=== PATIENT | male | born 1960 | race Caucasian/White ===

== ENCOUNTER 2025-07-22 09:52 | Inpatient (IN) ==
[2025-07-22] MEDS: DUONEB NEB ONE (10:22)
[2025-07-22 10:31] LABS: IMMATURE GRANULOCYTE # (AUTO) 0.0 (0.0-1.0); IMMATURE GRANULOCYTE % (AUTO) 0.3 % (0.0-5.0); RDW COEFFICIENT OF VARIATION 13.4 % (11.6-14.8)
[2025-07-22] MEDS: SODIUM CHLORIDE 1,000 ML IV ONE (10:39)
[2025-07-22 10:42] LABS: CREATININE 1.30 mg/dL (0.60-1.10)
[2025-07-22] MEDS: ZOFRAN SDV IVP ONE (10:48)
[2025-07-22] MEDS: ATIVAN IVP ONE (10:48)
--- NOTE | 2025-07-22 11:02 | DI ---
EXAMINATION: AP CHEST RADIOGRAPH. HISTORY: chest pain COMPARISON: 03/17/2025 chest x-ray FINDINGS: There is new elevation of the right hemidiaphragm. Multifocal right lung patchy opacities are seen. There is a subtle more focal right infrahilar opacity. No pleural effusion or pneumothorax. The cardiomediastinal silhouette is within normal limits. Operative changes mediasternotomy are again seen. IMPRESSION: Subtle right infrahilar focal opacity. This is nonspecific and a neoplastic etiology cannot be excluded in this exam. Recommend CT with IV contrast for further evaluation. New right hemidiaphragm elevation. Multifocal right lung atelectasis, consolidation and/or scarring.
--- NOTE | 2025-07-22 11:13 | ED.PDOC ---
General [facility] ED Provider: Dr. BRAULIO SIMONS MD Chief Complaint: Shortness of Air Stated Complaint: Patient is a 65-year-old male who is presenting to the emergency department for multiple complaints. Patient states that starting 5 days ago he has been having frequent nonbloody, nonbilious emesis with associated epigastric abdominal pain. He also endorses chest pain and shortness of breath for 4 days. He describes it as a dull retrosternal pain. He is unsure if there is any worsening of breath when lying flat. Denies any fevers, chills, or productive cough. Denies any diarrhea. He had a normal bowel movement earlier today without any hematochezia or melena. Also has been passing flatus without any issues. States the abdominal pain is extremely mild and he has not had to take any medication for it. He also notes that he feels "numb all over "for multiple days. Denies any focal numbness or weakness however. Patient states he has been noncompliant with his medications as he has not seen his primary care physician recently as he is concerned he will not see him as he owes them money. Patient is concerned that shortness of breath might be related to his history of atrial fibrillation. Time Seen by Provider: 07/22/25 10:03 Mode of Arrival: Walk-In Information Source: Patient Exam Limitations: No limitations Primary Care Provider: ANGELICA SANCHEZ MD Nursing and Triage Documentation Reviewed and Agree: Yes Opioid Naive vs. Tolerant What is Opioid Naive?: *Opioid Naive implies the patient is not already taking opioids or not chronically receiving opioids on a daily basis. *PRN dosing is not "usually" associated with tolerance. *Patients are at higher risk of over-sedation and aspiration. What is Opioid Tolerant?: *Opioid Tolerance implies less than the expected response to an opioid. *Acquired tolerance is defined by the patient taking 60mg of oral morphine daily (or equianalgesic dose of another opioid) for 1 week or more. *Often associated with chronic pain. *May take more than usual dose to achieve desired pain control. Review of Systems Review Of Systems Constitutional: Denies Chills, Diaphoresis, Fever or Weakness Respiratory: Reports Shortness of Breath; Denies Cough, Orthopnea or Wheezing Cardiac: Reports Chest pain; Denies Lightheadedness, Palpitations or Syncope GI: Reports Abdominal pain, Nausea, Poor fluid intake and Vomiting; Denies Abdomen distended, Constipated or Diarrhea : Reports No symptoms Musculoskeletal: Reports No symptoms Skin: Reports No symptoms PFSH PFSH Medical History Heart attack I21.9 - Acute myocardial infarction, unspecified (ICD-10) CVA (cerebral vascular accident) I63.9 - Cerebral infarction, unspecified (ICD-10) TIA (transient ischemic attack) G45.9 - Transient cerebral ischemic attack, unspecified (ICD-10) 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 - Aneurysm of pulmonary artery (ICD-10) Aneurysm I72.9 - Aneurysm of unspecified site (ICD-10) 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 - Pulmonary fibrosis, unspecified (ICD-10) Mass of upper lobe of right lung R91.8 - Other nonspecific abnormal finding of lung field (ICD-10) Asthma J45.909 - Unspecified asthma, uncomplicated (ICD-10) Diverticulitis K57.92 - Diverticulitis of intestine, part unspecified, without perforation or abscess without bleeding (ICD-10) Acute ear infection H66.90 - Otitis media, unspecified, unspecified ear (ICD-10) Family History FATHER Heart abnormality Mother Abdominal aortic aneurysm Mother Acute ischemic stroke Mother Polio Social History Smoking and tobacco status: Former smoker Smoking status stop date: 07/14/00 [place]/mandaeism: HINDUISM service: No Surgical History Hx of CABG Z95.1 - Presence of aortocoronary bypass graft (ICD-10) colon surgery back surgery Status post cholecystectomy Z90.49 - Acquired absence of other specified parts of digestive tract (ICD- 10) Physical Exam Physical Exam Appearance: Reports Well-appearing Ill-appearing: None Pain Distress: None Eyes: Reports Conjunctiva clear Neck: Supple Respiratory: Reports Airway patent, Breath sounds clear, Breath sounds equal, Retractions (Patient has abdominal breathing with some mild suprasternal retractions) and Other (Appears to be hyperventilating) Cardiovascular: Reports RRR and Pulses normal; Denies Irregular rhythm GI/: Reports Soft and Tender (Mild tenderness to palpation in the left upper, right upper, and right lower quadrant. There is no guarding or rigidity. No abdominal distention.) Musculoskeletal: Reports Normal strength Skin: Reports Warm and Dry Neurological: Reports Sensation intact and Motor intact Psychiatric: Reports Anxious Interpretation EKG Interpretation EKG Interpretation By: ED Physician Time of EKG #1: 10:14 Rate: Normal Rhythm: Sinus Ectopy: None [place]: Left ST Segment: Normal Interpretation: Normal sinus rhythm with no findings concerning for ACS EKG Comparison: No significant changes EKG Interpretation By: ED Physician Time of EKG #2: 10:57 Rate: Normal Rhythm: Sinus Ectopy: PVCs [place]: Left ST Segment: Normal EKG Interpretation: Normal sinus rhythm without findings concerning for ACS EKG Comparison: No significant changes Physician Progress Note Physician Progress Note: Patient is a 65-year-old male is presenting to the emergency department for evaluation of acute dyspnea with associated chest pain and abdominal pain. Patient's chest pain could be secondary to ACS versus heart exacerbation versus COPD exacerbation. Based on clinical examination I do have an overall low suspicion for COPD exacerbation however. Patient was empirically given a single DuoNeb breathing treatment which did not provide much improvement. Pneumonia was also considered but patient does not have any systemic infectious symptoms or productive cough that would suggest this. Chest plain film imaging had findings that could be consistent with consolidation versus atelectasis of the right lung. I did not initiate antibiotic treatment for pneumonia as patient does not have any infectious symptoms and again there is no productive cough to suggest he has underlying pneumonia. Furthermore he has no leukocytosis present. Patient's dyspnea is more readily explainable by his clear heart rate exacerbation given his elevated BNP around 5000. Should be noted that troponin was within normal limits and given the duration of his symptoms being around 5 days a repeat was not indicated. Given this as well as his unremarkable ECGs detailed above in the interpretation section, not concern for ACS at this time. We did obtain CT a abdomen/pelvis given his epigastric abdominal pain which showed there was no underlying mesenteric ischemia or other surgical etiology for his pain. This study is interpreted by the radiologist was negative for any acute findings although they did note an incidentally found right perihilar mass concerning for primary pulmonary malignancy. I did discuss these findings with the patient and they informed me that their primary care physician is already aware of this and they were actually scheduled to have a CT thorax study for further definition of it in several days. Given the negative CT study and the patient's history of chronic recurrent emesis, I favor that is likely secondary to his Ozempic use. Patient was given Lasix 40 mg IV for treatment of acute heart failure exacerbation. He is normoxic without any increased oxygen requirements as well as hemodynamically stable. Patient will be admitted to [facility] floor with telemetry for further diuresis. Patient was amenable to this plan. Course Course 07/22/25 10:27 07/22/25 10:27 Orders, Labs, Meds: Lab Review 07/22/25 07/22/25 10: 14:41 WBC 7.99 RBC 5.53 Hgb 15.7 Hct 46.4 MCV 83.9 MCH 28.4 MCHC 33.8 RDW Coeff of Isael 13.4 Plt Count 336 Immature Gran % (Auto) 0.3 Neut % (Auto) 66.2 Lymph % (Auto) 25.2 [place] % (Auto) 7.3 Eos % (Auto) 0.5 Baso % (Auto) 0.5 Neut # (Auto) 5.3 Lymph # (Auto) 2.0 [place] # (Auto) 0.6 Eos # (Auto) 0.0 Baso # (Auto) 0.0 Immature Gran # (Auto) 0.0 Sodium 134.0 L Potassium 4.26 Chloride 100.7 Carbon Dioxide 23.4 Anion Gap 14.16 BUN 19.6 Creatinine 1.30 H Estimated GFR (MDRD) 55.00 BUN/Creatinine Ratio 15.07 Glucose 128.8 H Hemoglobin A1c 5.75 Calcium 9.73 Magnesium 1.88 Total Bilirubin 1.82 H AST 38.3 ALT 20.7 Alkaline Phosphatase 96.2 Troponin I < 0.012 NT-Pro-B Natriuret Pep 5810 H Total Protein 8.35 H Albumin 4.36 Globulin 3.99 Albumin/Globulin Ratio 1.09 Lipase 65.1 Orders Category Date Time Status ADMIT PATIENT INPATIENT .TO [facility] (MONITORED BED) ADMISSION 07/22/25 14:27 Active EKG-(ED & IP/OBS ONLY) Stat CARDIO 07/22/25 10:13 Completed EKG-(ED & IP/OBS ONLY) Stat CARDIO 07/22/25 11:01 Completed INTAKE & OUTPUT Q8HR CARE 07/22/25 14:27 Active IP: INSERT SALINE LOCK ONCE CARE 07/22/25 14:27 Active NPO REMINDER: IMAGING ONCE CARE 07/22/25 11:18 Completed TELEMETRY MONITORING TELE CARE 07/22/25 14:27 Active VITAL SIGNS Q8HR CARE 07/22/25 14:27 Active BNP [NT-PROBNP] Stat LAB 07/22/25 10:27 Completed CBC W/ AUTO DIFF Stat LAB 07/22/25 10:27 Completed CMP [COMPREHENSIVE METABOLIC PANEL] Stat LAB 07/22/25 10:27 Completed HEMOGLOBIN A1C Routine LAB 07/22/25 14:41 Completed LIPASE Stat LAB 07/22/25 10:27 Completed MAGNESIUM Stat LAB 07/22/25 10:27 Completed TROPONIN I Stat LAB 07/22/25 10:27 Completed Acetaminophen Meds 07/22/25 11:15 Discontinued 1,000 mg in 100 ml IV ONCE Furosemide [Lasix] Meds 07/22/25 13:31 Discontinued 40 mg IVP ONCE ONE Iohexol [Omnipaque 350 mg/ml 100Ml] Meds 07/22/25 11:34 Discontinued 100 ml IVP ONCE ONE Ipratropium/Albuterol Neb [Duoneb] Meds 07/22/25 10:14 Discontinued 3 ml NEB ONCE ONE Lorazepam [Ativan] Meds 07/22/25 10:42 Discontinued 1 mg IVP ONCE ONE Ondansetron HCl/Pf [Zofran Sdv] Meds 07/22/25 10:13 Discontinued 4 mg IVP ONCE ONE Sodium Chloride 0.9% [Sodium Chloride] 1,000 ml Meds 07/22/25 10:13 Discontinued IV BOLUS RESUSCITATION STATUS Routine OTHERS 07/22/25 14:27 Ordered CHEST, 1V AP ONLY Stat RADS 07/22/25 10:13 Completed CTA ANGIO ABD/PELVIS Stat RADS 07/22/25 11:18 Completed Medications Generic Name Dose Route Start Last Admin Trade Name Freq PRN Reason Stop Dose Admin Dextrose 50 ml 07/22/25 15:24 Dextrose 50 % In Water 50 Ml Disp.Syrin IVP ONCE PRN hypoglycemia Furosemide 40 mg 07/22/25 21:00 Furosemide Inj 40 Mg/4 Ml Vial IVP Q8HR [facility] Insulin Human Regular 0 unit 07/22/25 15:25 Insulin Regular, Human 100 Unit/Ml (10ml) Vial SUBCUT PRN PRN Hyperglycemia Protocol Ondansetron HCl 4 mg 07/22/25 15:23 Ondansetron Hcl/Pf 4 Mg/2 Ml Sdv IVP Q6H PRN Nausea / Vomiting Pantoprazole Sodium 40 mg 07/22/25 21:00 Pantoprazole Sodium 40 Mg Vial IVP BID TREVA Discontinued Medications Generic Name Dose Route Start Last Admin Trade Name Freq PRN Reason Stop Dose Admin Albuterol/Ipratropium 3 ml 07/22/25 10:14 07/22/25 10:22 Ipratropium/Albuterol Vial.Neb NEB 07/22/25 10:15 3 ml ONCE ONE Administration Furosemide 40 mg 07/22/25 13:31 07/22/25 13:53 Furosemide Inj 40 Mg/4 Ml Vial IVP 07/22/25 13:32 40 mg ONCE ONE Administration Sodium Chloride 1,000 mls @ 1,000 mls/hr 07/22/25 10:13 07/22/25 12:31 Sodium Chloride IV 07/22/25 11:12 Infused BOLUS ONE Infusion Acetaminophen 1,000 mg in 100 mls @ 400 mls/hr 07/22/25 11:15 07/22/25 11:27 Acetaminophen IV 07/22/25 11:29 400 mls/hr ONCE ONE Administration Iohexol 100 ml 07/22/25 11:34 07/22/25 11:35 Iohexol 350 Mg/Ml 100ml IVP 07/22/25 11:35 100 ml ONCE ONE Administration Lorazepam 1 mg 07/22/25 10:42 07/22/25 10:48 Lorazepam Inj 2 Mg/Ml Vial IVP 07/22/25 10:43 1 mg ONCE ONE Administration Ondansetron HCl 4 mg 07/22/25 10:13 07/22/25 10:48 Ondansetron Hcl/Pf 4 Mg/2 Ml Sdv IVP 07/22/25 10:14 4 mg ONCE ONE Administration Vital Signs: Temp Pulse Resp BP Pulse Ox 07/22/25 10:04 98.2 F 87 24 H 152/89 H 100 Discharge Plan Discharge Patient Disposition: ADMITTED INPATIENT Discharge Problem: Congestive heart failure (CHF) Did you review [place] [employer] for ALL controlled substances?: No ED Provider: BRAULIO SIMONS
[2025-07-22] MEDS: ACETAMINOPHEN 1,000 MG/100 ML BAG IV ONE (11:27)
[2025-07-22] MEDS: OMNIPAQUE 350 MG/ML 100ML IVP ONE (11:35)
--- NOTE | 2025-07-22 13:16 | CT ---
EXAM: CTA ABDOMEN AND PELVIS WITH AND WITHOUT CONTRAST HISTORY: Right upper and lower quadrant tenderness to palpation TECHNIQUE: CT acquisition of the abdomen and pelvis from the lower thorax through the pelvis without intravenous contrast administration. CTA acquisition of the abdomen and pelvis with intravenous contrast administration. IV Contrast: 100 mm Omnipaque 350 administered. Gastrointestinal contrast: None. 3D/MIP/VR images were performed. CT Dose Reduction Techniques Performed: Yes. COMPARISON: 03/22/2023 and 01/03/2025 FINDINGS: For reference, stenoses are graded as: mild (<50%), moderate (51-69%), severe (70-94%), critical (95-99%) VASCULAR: Aorta: Similar infrarenal abdominal aortic aneurysm measuring up to 3.3 cm.. No significant stenosis. No atherosclerotic plaque/calcification. Common Iliac arteries: Mild bilateral stenosis. No aneurysm. Internal Iliac arteries: [id number] scattered bilateral stenosis. External Iliac arteries: No significant stenosis. Celiac artery: Mild origin stenosis. Superior mesenteric artery: Moderate origin stenosis. Inferior mesenteric artery: No significant stenosis. Left renal artery: Mild origin stenosis. Right renal artery: [id number] origin stenosis. Limited venous system: Not well opacified due to phase of contrast. ABDOMEN/PELVIS: Lower Thorax: Right hilar mass measuring 5.5 x 4.8 cm transaxially. Mass effect on the regional vasculature and bronchi partially demonstrated. Liver: No mass. Normal morphology. Biliary: Cholecystectomy. No biliary dilation. Pancreas: No duct dilation. No mass. Spleen: Calcified granuloma Adrenals: No mass. Kidneys and ureters: Small simple bilateral renal cysts. No acute or suspicious renal findings. No hydronephrosis or calculus. GI Tract: Postoperative changes of the sigmoid colon. No bowel obstruction or inflammation. No contrast extravasation into the bowel. Normal appendix. Peritoneal Cavity: No ascites. Lymph Nodes: No lymphadenopathy. Pelvis: No free fluid. Bladder is normal. Bones/Soft Tissues: No acute or suspicious osseous findings. Anterior and posterior L5-S1 fusion hardware. Scattered chronic degenerative changes. IMPRESSION: No acute CTA findings in the abdomen or pelvis. Right hilar mass measuring up to 5.5 cm with associated mass effect on the regional vasculature and bronchi, partially demonstrated. This is most consistent with primary pulmonary malignancy. Recommend CT chest with contrast for further evaluation. Additional findings as above. All CT scans are performed using dose optimization techniques as appropriate to the performed exam and include at least one of the following: Automated exposure control, adjustment of the mA and/or kV according to size, and the use of iterative reconstruction technique.
[2025-07-22] MEDS: LASIX IVP ONE (13:53)
[2025-07-22] MEDS ORDERED: DEXTROSE 50%-WATER ABBOJECT IVP PRN (15:24)
[2025-07-22] MEDS ORDERED: HUMULIN R (10ML) SUBCUT PRN (15:25)
--- NOTE | 2025-07-22 15:37 | PCM ---
Date of Service Date Seen by Provider: 07/22/25 Time Seen by Provider: 16:00 Admit Day/Time Admission Date: 07/22/25 Admission Time: 15:39 Reason for Admission Chief Complaint: ACUTE HF EXACERBATION Hospital Provider Hospital Provider: FLEX FERNANDES, [facility] Primary Care Physician Primary Care Physician: ANGELICA SANCHEZ MD History of Present Illness History of Present Illness: 65 year old male from home with pmhx of CABG, MIKE, hyperlipidemia, CHF, DMT2 insulin dependent, interstitial lung disease, and COPD who presented to the ER today with complaints of shortness of breath, non bloody vomiting, and numbness "all over" for about 5 days. Patient was concerned that he was in afib RVR. ER workup revealed a BNP of 5810. CXR negative other than a new mass that was visualized. Abdomen/pelv CTA completed that shows a new 5.5cm right hilar mass that is constistent with primary pulmonary malignancy. Patient admitted to [facility] inpatient for CHF exacerbation. At this time, patient denies feeling short of breath. On room air and conversing without difficulty. No nausea or abd pain at this time. Patient reports that he has been vomiting on and off for the last 6 months and reports he vomits "60% of the days". Reports he had an upper endoscopy around Spring that was normal. Reports he has had chills over the last several days, but no fever. Case Discussed With Case Discussed With: Patient's case was discussed with the ER Physicians, Dr. 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 - Pulmonary fibrosis, unspecified (ICD-10) Mass of upper lobe of right lung R91.8 - Other nonspecific abnormal finding of lung field (ICD-10) Asthma J45.909 - Unspecified asthma, uncomplicated (ICD-10) Diverticulitis K57.92 - Diverticulitis of intestine, part unspecified, without perforation or abscess without bleeding (ICD-10) Acute ear infection H66.90 - Otitis media, unspecified, unspecified ear (ICD-10) Surgical History Hx of CABG Z95.1 - Presence of aortocoronary bypass graft (ICD-10) colon surgery back surgery Status post cholecystectomy Z90.49 - Acquired absence of other specified parts of digestive tract (ICD- 10) Family History FATHER Heart abnormality Mother Abdominal aortic aneurysm Mother Acute ischemic stroke Mother Polio Social History Smoking and tobacco status: Former smoker Smoking status stop date: 07/14/00 Aurora/jain: HINDUISM service: No Allergies Allergies Allergy/AdvReac Type Severity Reaction Status Date / Time cephalexin monohydrate (From Allergy Severe Anaphylaxis Verified 07/22/25 10:04 Keflex) Cephalosporins AdvReac Intermediate Unknown Verified 07/22/25 10:04 exenatide (From [place]) AdvReac Unknown Verified 07/22/25 10:04 Current Medications Home Medications Dextrose (Dextrose 50 % In Water 50 Ml Disp.Syrin) 50 ml IVP ONCE PRN PRN Reason: hypoglycemia Furosemide (Furosemide Inj 40 Mg/4 Ml Vial) 40 mg IVP Q8HR TREVA Insulin Human Regular (Insulin Regular, Human 100 Unit/Ml (10ml) Vial) 0 unit SUBCUT PRN PRN; Protocol PRN Reason: Hyperglycemia Ondansetron HCl (Ondansetron Hcl/Pf 4 Mg/2 Ml Sdv) 4 mg IVP Q6H PRN PRN Reason: Nausea / Vomiting Pantoprazole Sodium (Pantoprazole Sodium 40 Mg Vial) 40 mg IVP BID TREVA atorvastatin 40 mg tablet 40 mg PO DAILY 03/22/23 [History Confirmed 01/03/25] metoprolol tartrate 50 mg tablet 50 mg PO BID 03/22/23 [History Confirmed 01/03/25] sacubitril 97 mg-valsartan 103 mg tablet (Entresto) 1 tab PO BID 03/22/23 [History Confirmed 01/03/25] spironolactone 25 mg tablet 25 mg PO DAILY 03/22/23 [History Confirmed 01/03/25] fluticasone propionate 50 mcg/actuation nasal spray,suspension (Allergy Relief (fluticasone)) 2 spray intranasal DAILY 12/28/24 [History Confirmed 01/03/25] insulin glargine 100 unit/mL subcutaneous solution (Lantus U-100 Insulin) 6 unit subcut DAILY 12/28/24 [History Confirmed 07/22/25] isosorbide mononitrate 120 mg tablet,extended release 24 hr 120 mg PO DAILY 01/03/25 [History Confirmed 01/03/25] terbinafine HCl 250 mg tablet 250 mg PO DAILY 01/03/25 [History Confirmed 01/03/25] apixaban 5 mg tablet (Eliquis) 5 mg PO BID #60 tabs 01/04/25 [Rx] clopidogrel 75 mg tablet (Plavix) 75 mg PO DAILY #30 tabs 01/04/25 [Rx] ondansetron HCl 4 mg tablet 4 mg PO Q6-8H PRN nausea and vomiting #14 tabs 01/04/25 [Rx] pantoprazole 40 mg tablet,delayed release (Protonix) 40 mg PO DAILY #30 tabs 01/04/25 [Rx] semaglutide 0.25 mg or 0.5 mg (2 mg/3 mL) subcutaneous pen injector (Ozempic) 0.5 mg (0.736 mL) subcut WEEKLY #3 mL 01/04/25 [Rx] ondansetron 4 mg disintegrating tablet 4 mg PO Q8H PRN nausea and vomiting #30 tabs 03/17/25 [Rx] Opioid Naive vs. Tolerant Does Patient Take Opioids?: No Is Patient Opioid Naive?: Yes What is Opioid Naive?: *Opioid Naive implies the patient is not already taking opioids or not chronically receiving opioids on a daily basis. *PRN dosing is not "usually" associated with tolerance. *Patients are at higher risk of over-sedation and aspiration. Is Patient Opioid Tolerant?: No What is Opioid Tolerant?: *Opioid Tolerance implies less than the expected response to an opioid. *Acquired tolerance is defined by the patient taking 60mg of oral morphine daily (or equianalgesic dose of another opioid) for 1 week or more. *Often associated with chronic pain. *May take more than usual dose to achieve desired pain control. Review of Systems Constitutional: Reports Chills; Denies Fever, Fatigue or Weakness Head: Reports Normocephalic and Atraumatic Eyes: Reports No symptoms Ears: Reports No symptoms Nose: Reports No symptoms Mouth: Reports No symptoms Throat: Reports No symptoms Cardiovascular: Reports No symptoms; Denies Chest pain, Chest Pressure, Orthop adilene, Edema or Palpitations Respiratory: Reports Cough (chronic with white sputum) and Shortness of air Gastrointestinal: Reports Vomiting; Denies Diarrhea, Hematemesis, Hematochezia or Abdominal pain Genitourinary: Reports No Symptoms Musculoskeletal: Reports No symptoms Dermatologic: Denies Rashes or Skin Changes Endocrine: Reports No symptoms Hematology: Reports No symptoms Immunology: Reports No symptoms Neurological: Reports No symptoms Psychiatric: Reports No symptoms Physical examination Most Recent Vital Signs: Most Recent Vital Signs Temperature 98.2 F 07/22/25 10:04 Temperature Source Temporal Artery Scan 07/22/25 10:04 Pulse Rate 87 07/22/25 10:04 Respiratory Rate 24 H 07/22/25 10:04 Blood Pressure 152/89 H 07/22/25 10:04 O2 Sat by Pulse Oximetry 100 07/22/25 10:04 Height 5 ft 7 in 07/22/25 10:04 Weight 66 kg 07/22/25 10:04 Telemetry Heart Rate 68 01/04/25 13:00 Appearance: Positive Well-appearing, Well-nourished and Alert and Oriented x3 Skin: Positive Warm and Good Turgor HEENT: Positive Normocephalic and Atraumatic Neck: Positive Supple and Adenopathy Chest/Lungs: Positive Symmetrical With Equal Breath Sounds, Clear to Auscultation Bilaterally and Good Air Movement all 4 Lung Collins; Negative Rales, Rhonci or Wheezes Heart: Positive Pulses Normal and Irregular Rhythm GI/: Positive Soft, Nontender, Bowel Sounds Normal and No Distention; Negative Tender or Mass Musculoskeletal: Positive Not Examined Extremities: Positive Intact Peripheral Pulses Neurological: Positive Sensation Intact, Motor intact, Alert and Oriented Psychiatric: Positive Oriented x4, Appropriate Mood and Appropriate Affect Labs This Visit Labs This Visit: Labs This Visit 07/22/25 07/22/25 10:27 14:41 WBC 7.99 RBC 5.53 Hgb 15.7 Hct 46.4 MCV 83.9 MCH 28.4 MCHC 33.8 RDW Coeff of Isael 13.4 Plt Count 336 Immature Gran % (Auto) 0.3 Neut % (Auto) 66.2 Lymph % (Auto) 25.2 [place] % (Auto) 7.3 Eos % (Auto) 0.5 Baso % (Auto) 0.5 Neut # (Auto) 5.3 Lymph # (Auto) 2.0 [place] # (Auto) 0.6 Eos # (Auto) 0.0 Baso # (Auto) 0.0 Immature Gran # (Auto) 0.0 Sodium 134.0 L Potassium 4.26 Chloride 100.7 Carbon Dioxide 23.4 Anion Gap 14.16 BUN 19.6 Creatinine 1.30 H Estimated GFR (MDRD) 55.00 BUN/Creatinine Ratio 15.07 Glucose 128.8 H Hemoglobin A1c 5.75 Calcium 9.73 Magnesium 1.88 Total Bilirubin 1.82 H AST 38.3 ALT 20.7 Alkaline Phosphatase 96.2 Troponin I < 0.012 NT-Pro-B Natriuret Pep 5810 H Total Protein 8.35 H Albumin 4.36 Globulin 3.99 Albumin/Globulin Ratio 1.09 Lipase 65.1 Imaging Imaging: EXAMINATION: AP CHEST RADIOGRAPH. HISTORY: chest pain COMPARISON: 03/17/2025 chest x-ray FINDINGS: There is new elevation of the right hemidiaphragm. Multifocal right lung patchy opacities are seen. There is a subtle more focal right infrahilar opacity. No pleural effusion or pneumothorax. The cardiomediastinal silhouette is within normal limits. Operative changes mediasternotomy are again seen. IMPRESSION: Subtle right infrahilar focal opacity. This is nonspecific and a neoplastic etiology cannot be excluded in this exam. Recommend CT with IV contrast for further evaluation. New right hemidiaphragm elevation. Multifocal right lung atelectasis, consolidation and/or scarring EXAM: CTA ABDOMEN AND PELVIS WITH AND WITHOUT CONTRAST HISTORY: Right upper and lower quadrant tenderness to palpation TECHNIQUE: CT acquisition of the abdomen and pelvis from the lower thorax through the pelvis without intravenous contrast administration. CTA acquisition of the abdomen and pelvis with intravenous contrast administration. IV Contrast: 100 mm Omnipaque 350 administered. Gastrointestinal contrast: None. 3D/MIP/VR images were performed. CT Dose Reduction Techniques Performed: Yes. COMPARISON: 03/22/2023 and 01/03/2025 FINDINGS: For reference, stenoses are graded as: mild (<50%), moderate (51-69%), severe (70-94%), critical (95-99%) VASCULAR: Aorta: Similar infrarenal abdominal aortic aneurysm measuring up to 3.3 cm.. No significant stenosis. No atherosclerotic plaque/calcification. Common Iliac arteries: Mild bilateral stenosis. No aneurysm. Internal Iliac arteries: [id number] scattered bilateral stenosis. External Iliac arteries: No significant stenosis. Celiac artery: Mild origin stenosis. Superior mesenteric artery: Moderate origin stenosis. Inferior mesenteric artery: No significant stenosis. Left renal artery: Mild origin stenosis. Right renal artery: [id number] origin stenosis. Limited venous system: Not well opacified due to phase of contrast. ABDOMEN/PELVIS: Lower Thorax: Right hilar mass measuring 5.5 x 4.8 cm transaxially. Mass effect on the regional vasculature and bronchi partially demonstrated. Liver: No mass. Normal morphology. Biliary: Cholecystectomy. No biliary dilation. Pancreas: No duct dilation. No mass. Spleen: Calcified granuloma Adrenals: No mass. Kidneys and ureters: Small simple bilateral renal cysts. No acute or suspicious renal findings. No hydronephrosis or calculus. GI Tract: Postoperative changes of the sigmoid colon. No bowel obstruction or inflammation. No contrast extravasation into the bowel. Normal appendix. Peritoneal Cavity: No ascites. Lymph Nodes: No lymphadenopathy. Pelvis: No free fluid. Bladder is normal. Bones/Soft Tissues: No acute or suspicious osseous findings. Anterior and posterior L5-S1 fusion hardware. Scattered chronic degenerative changes. IMPRESSION: No acute CTA findings in the abdomen or pelvis. Right hilar mass measuring up to 5.5 cm with associated mass effect on the regional vasculature and bronchi, partially demonstrated. This is most consistent with primary pulmonary malignancy. Recommend CT chest with contrast for further evaluation. Additional findings as above. Review Statement Review Statement: I have independently reviewed and interpreted the labs/EKGs/imaging that were ordered by the ER provider. I have reviewed all outside records that are available currently in our EMR including imaging/notes/labs from previous visits. Plan Plan: Plan: 1. CHF exacerbation- unknown type, Echo ordered for tomorrow, sees [place] [facility]. Attempt to obtain records tomorrow. Lasix 40mg IVP Q8H, strict I/O 2. Nausea/vomiting- appears chronic, clear liquids, protonix 40mg BID IV, zofran PRN, abd/pelv CT negative for any findings, likely related to ozempic use 3. New hilar mass- will need outpatient follow up, coordinate with truck driver instructor Dr. Bruce who has been following this 4. Afib- Chronic, continue home meds, tele 5. DMT2- A1c 5.75. Holding home ozempic and lantus. Accuchecks ACHS with SSI 6. Hyperlipidemia- Chronic, continue home meds 7. MIKE- encouraged patient to have family bring in home CPAP, may use oxgen PRN if unable to get CPAP DVT Prophylaxis:lauroquis Time Spent: Greater than 80 minutes spent with patient, 50% of the time spent with this patient was devoted to counseling and coordination of care. [facility] minutes spent discussing advance care planning. Disposition: home Admit to: [facility] inpatient Discussed Plan of Care with Dr. Lopes Medications Medication Orders: Medications Ordered Category Date Time Status Dextrose 50 % in Water [Dextrose 50%-Water Abboject] Meds 07/22/25 15:24 Active 50 ml IVP ONCE PRN Furosemide [Lasix] Meds 07/22/25 21:00 Active 40 mg IVP Q8HR Insulin Regular, Human [Humulin R (10Ml)] Meds 07/22/25 15:25 Ordered See Protocol SUBCUT PRN PRN Ondansetron HCl/Pf [Zofran Sdv] Meds 07/22/25 15:23 Active 4 mg IVP Q6H PRN
[2025-07-22 15:55] VITALS: BMI 24.1
[2025-07-22] MEDS ORDERED: FLONASE NAS PRN (16:23)
[2025-07-22] MEDS: ELIQUIS PO SCH (20:10)
[2025-07-22] MEDS: RANEXA PO SCH (20:10)
[2025-07-22] MEDS: LOPRESSOR PO SCH (20:10)
[2025-07-22] MEDS: ENTRESTO 24 MG-26 MG TABLET PO SCH (20:11)
[2025-07-22] MEDS: LASIX IVP SCH (20:14)
[2025-07-22] MEDS: PROTONIX IVP SCH (20:14)
[2025-07-22] MEDS: ZOFRAN SDV IVP PRN (20:14)
[2025-07-23 06:13] LABS: IMMATURE GRANULOCYTE # (AUTO) 0.0 (0.0-1.0); IMMATURE GRANULOCYTE % (AUTO) 0.3 % (0.0-5.0); RDW COEFFICIENT OF VARIATION 13.6 % (11.6-14.8)
[2025-07-23 06:25] LABS: CREATININE 1.39 mg/dL (0.60-1.10)
[2025-07-23] MEDS: PLAVIX PO SCH (08:28)
[2025-07-23] MEDS: ALDACTONE PO SCH (08:34)
[2025-07-23] MEDS: LIPITOR PO SCH (08:34)
[2025-07-23] MEDS: IMDUR PO SCH (08:35)
[2025-07-23] MEDS ORDERED: VENTOLIN HFA IH PRN (10:58)
--- NOTE | 2025-07-23 10:59 | PCM.PROG ---
Date/Time Seen Date Seen by Provider: 07/23/25 Time Seen by Provider: 08:55 Provider [facility] Chief Complaint Chief Complaint: ACUTE HF EXACERBATION Subjective Subjective: Reports feeling tight when trying to get a deep breath. Uses rescue inhaler at home. Feels breathing is better compared to yesterday. Using oxygen in replacement of CPAP. Had episode of vomiting prior to machine tool technology instructor entering room. Objective Appearance: Positive No Apparent Distress, Alert and Oriented x3 and Ill- Appearing Chest/Lungs: Positive Symmetrical With Equal Breath Sounds, Clear to Auscultation Bilaterally and Other (diminished up lung galvez); Negative Rales, Rhonci or Wheezes Heart: Positive RRR and Pulses Normal GI/: Positive Soft, Nontender, Bowel Sounds Normal and No Distention Musculoskeletal: Positive Not Examined Neurological: Positive Sensation Intact, Motor intact, Reflexes Intact, Alert and Oriented Vital Signs Vital Signs: Vital Signs: Last 24 Hours 07/22/25 15:36 07/22/25 15:36 07/22/25 15:45 Temperature 97.4 F L Temperature Source Oral Pulse Rate 84 Respiratory Rate 22 H 16 Blood Pressure Blood Pressure Mean Blood Pressure Left Arm 128/95 Blood Pressure Location Blood Pressure Position Supine O2 Sat by Pulse Oximetry 99 Oxygen Delivery Method Room Air Room Air Oxygen Flow Rate Height 5 ft 7 in Weight 70 kg Telemetry Type Remote Telemetry Telemetry Monitoring Started Telemetry Heart Rate 83 EKG SD Interval 0.16 EKG QRS Interval 0.07 Telemetry Strip Reading NSR 07/22/25 19:00 07/22/25 19:50 07/22/25 20:34 Temperature Temperature Source Pulse Rate Respiratory Rate 20 Blood Pressure Blood Pressure Mean Blood Pressure Left Arm Blood Pressure Location Blood Pressure Position O2 Sat by Pulse Oximetry Oxygen Delivery Method Bi-pap Bi-pap Oxygen Flow Rate 2 Height Weight Telemetry Type Remote Telemetry Telemetry Monitoring Continues Telemetry Heart Rate 89 EKG SD Interval 0.15 EKG QRS Interval 0.07 Telemetry Strip Reading SR 07/22/25 21:44 07/23/25 01:00 07/23/25 05:35 Temperature 96.7 F L 97 F L Temperature Source Temporal Artery Scan Temporal Artery Scan Pulse Rate 75 77 Respiratory Rate 18 18 Blood Pressure 106/71 114/61 Blood Pressure Mean 82 78 Blood Pressure Left Arm Blood Pressure Location Right Arm Right Arm Blood Pressure Position Supine Supine O2 Sat by Pulse Oximetry 99 96 Oxygen Delivery Method Bi-pap Bi-pap Oxygen Flow Rate Height Weight Telemetry Type Remote Telemetry Telemetry Monitoring Continues Telemetry Heart Rate EKG SD Interval 0.19 EKG QRS Interval 0.06 Telemetry Strip Reading SR 07/23/25 05:36 07/23/25 07:00 07/23/25 08:00 Temperature Temperature Source Pulse Rate Respiratory Rate 24 H Blood Pressure Blood Pressure Mean Blood Pressure Left Arm Blood Pressure Location Blood Pressure Position O2 Sat by Pulse Oximetry Oxygen Delivery Method Bi-pap Room Air Oxygen Flow Rate 2 Height Weight Telemetry Type Remote Telemetry Telemetry Monitoring Continues Telemetry Heart Rate 82 EKG SD Interval 0.15 EKG QRS Interval 0.08 Telemetry Strip Reading NSR 07/23/25 10:35 Temperature Temperature Source Pulse Rate Respiratory Rate Blood Pressure Blood Pressure Mean Blood Pressure Left Arm Blood Pressure Location Blood Pressure Position O2 Sat by Pulse Oximetry 96 Oxygen Delivery Method Room Air Oxygen Flow Rate Height Weight Telemetry Type Telemetry Monitoring Telemetry Heart Rate EKG SD Interval EKG QRS Interval Telemetry Strip Reading Lab Results Lab Results: Lab Results: Last 24 Hours 07/23/25 07/22/25 06:08 14:41 WBC 9.92 RBC 5.84 Hgb 16.6 Hct 49.0 MCV 83.9 MCH 28.4 MCHC 33.9 RDW Coeff of Isael 13.6 Plt Count 370 Immature Gran % (Auto) 0.3 Neut % (Auto) 58.6 Lymph % (Auto) 30.4 [place] % (Auto) 8.6 Eos % (Auto) 1.6 Baso % (Auto) 0.5 Neut # (Auto) 5.8 Lymph # (Auto) 3.0 [place] # (Auto) 0.9 Eos # (Auto) 0.2 Baso # (Auto) 0.1 Immature Gran # (Auto) 0.0 Sodium 132.1 L Potassium 3.90 Chloride 94.6 L Carbon Dioxide 29.9 Anion Gap 11.50 BUN 19.3 Creatinine 1.39 H Estimated GFR (MDRD) 51.00 BUN/Creatinine Ratio 13.88 Glucose 130.6 H Hemoglobin A1c 5.75 Calcium 9.59 Total Bilirubin 1.56 H AST 28.4 ALT 18.8 Alkaline Phosphatase 104.2 Total Protein 8.76 H Albumin 4.56 Globulin 4.20 Albumin/Globulin Ratio 1.08 Additional Comments Additional Comments: I have independently reviewed and interpreted the labs/EKGs/imaging ordered during this hospital stay. I have reviewed outside records that are available in our EMR that pertain to medical stay including imaging/notes/labs from previous visits. Active Medications Active Medications: Medications Generic Name Dose Route Start Last Admin Trade Name Freq PRN Reason Stop Dose Admin Apixaban 5 mg 07/22/25 21:00 07/23/25 08:30 Apixaban 5 Mg Tab PO 5 mg BID TREVA Administration Atorvastatin Calcium 40 mg 07/23/25 09:00 07/23/25 08:34 Atorvastatin Calcium 20 Mg Tablet PO 40 mg DAILY TREVA Administration Clopidogrel Bisulfate 75 mg 07/23/25 09:00 07/23/25 08:28 Clopidogrel Bisulfate 75 Mg Tablet PO 75 mg DAILY TREVA Administration Dextrose 50 ml 07/22/25 15:24 Dextrose 50 % In Water 50 Ml Disp.Syrin IVP ONCE PRN hypoglycemia Fluticasone Propionate 2 spray 07/22/25 16:23 Fluticasone Propionate 16 Gm Nasal [place] BEBE DAILY PRN Allergy Symptoms Furosemide 40 mg 07/22/25 21:00 07/23/25 05:09 Furosemide Inj 40 Mg/4 Ml Vial IVP 40 mg Q8HR TREVA Administration Insulin Human Regular 0 unit 07/22/25 15:25 Insulin Regular, Human 100 Unit/Ml (10ml) Vial SUBCUT PRN PRN Hyperglycemia Protocol Isosorbide Mononitrate 120 mg 07/23/25 09:00 07/23/25 08:35 Isosorbide Mononitrate 30 Mg Tab.Er.24h PO 120 mg DAILY TREVA Administration Metoprolol Tartrate 50 mg 07/22/25 21:00 07/23/25 08:34 Metoprolol Tartrate 50 Mg Tablet PO 50 mg BID TREVA Administration Non-Formulary Medication 1 drop 07/22/25 21:00 Azelastine EACHEYE 2XD TREVA Non-Formulary Medication 250 mg 07/23/25 09:00 Terbinafine Hcl PO DAILY TREVA Ondansetron HCl 4 mg 07/22/25 15:23 07/23/25 06:23 Ondansetron Hcl/Pf 4 Mg/2 Ml Sdv IVP 4 mg Q6H PRN Administration Nausea / Vomiting Pantoprazole Sodium 40 mg 07/22/25 21:00 07/23/25 08:31 Pantoprazole Sodium 40 Mg Vial IVP 40 mg BID TREVA Administration Ranolazine 500 mg 07/22/25 21:00 07/23/25 08:31 Ranolazine 500 Mg Tab.Er.12h PO 500 mg 2XD TREVA Administration Sacubitril/Valsartan 4 each 07/22/25 21:00 07/23/25 08:29 Sacubitril/Valsartan 1 Each Tablet PO 4 each BID TREVA Administration Spironolactone 25 mg 07/23/25 09:00 07/23/25 08:34 Spironolactone 25 Mg Tablet PO 25 mg DAILY TREVA Administration Plan Plan: 1. CHF exacerbation - Diuresed 3L thus far, unknown type, Echo ordered, sees [place] [facility] - awaiting records, Lasix 40mg IVP Q8H, strict I/O 2. Nausea/vomiting - appears chronic, clear liquids, protonix 40mg BID IV, zofran PRN, abd/pelv CT negative for any findings, likely related to ozempic use 3. New hilar mass - will need outpatient follow up, has appt with Dr. Bruce on 07/25 4. Afib - Chronic, continue home meds, tele 5. DMT2 - A1c 5.75. Holding home ozempic and lantus. Accuchecks ACHS with SSI 6. Hyperlipidemia - Chronic, continue home meds 7. MIKE - encouraged patient to have family bring in home CPAP, may use oxygen PRN if unable to get CPAP 8. COPD - follows with Dr. Bruce, reported sob/tightness this am, rescue inhaler ordered DVT Prophylaxis: Angelicaquyung Review Statement Review Statement: I have personally discussed and reviewed the patient's visit/currently labs/imaging/decision making with Dr. Lopes, my supervising attending. Greater that 50 minutes spent with patient, 50% of the time spent with this patient was devoted to counseling and coordination of care.
[2025-07-23] MEDS: DEFINITY IVP PRN (11:08)
[2025-07-23] MEDS: NON-FORMULARY MEDICATION (Terbinafine Hcl 250 mg tablet) PO SCH (12:11)
[2025-07-23 12:21] LABS: CHOL/HDL RATIO 2.5 (4.5-6.4); VLDL CHOLESTEROL 15.0 mg/dL (2-30)
[2025-07-23] MEDS: REGLAN IVP ONE (12:29)
[2025-07-23] MEDS: TORADOL IVP PRN (12:33)
[2025-07-23] MEDS: SODIUM CHLORIDE 500 ML IV ONE ×2 (14:28→19:33)
[2025-07-24 05:41] LABS: IMMATURE GRANULOCYTE # (AUTO) 0.1 (0.0-1.0); IMMATURE GRANULOCYTE % (AUTO) 0.6 % (0.0-5.0); RDW COEFFICIENT OF VARIATION 13.4 % (11.6-14.8)
[2025-07-24 05:53] LABS: CREATININE 2.24 mg/dL (0.60-1.10)
[2025-07-24] MEDS: SODIUM CHLORIDE 1,000 ML IV SCH ×2 (10:27→14:36)
--- NOTE | 2025-07-24 13:43 | PCM.PROG ---
Date/Time Seen Date Seen by Provider: 07/24/25 Time Seen by Provider: 09:15 Provider Provider: EARL GARZON[facility] Chief Complaint Chief Complaint: ACUTE HF EXACERBATION Subjective Subjective: Had sudden episode of feeling unwell and vision changes. BP found to be low in 80s/40s. Likely due to over medication with all BP/HF meds including lasix. Creatinine elevated this am. Received 1L NS total. BP slowly improved. Remains soft this am. Asymptomatic. Feels he is breathing much better. Sats 99 on RA. Objective Appearance: Positive No Apparent Distress and Alert and Oriented x3 Chest/Lungs: Positive Symmetrical With Equal Breath Sounds, Clear to Auscultation Bilaterally and Good Air Movement all 4 Lung Collins; Negative Rales, Rhonci or Wheezes Heart: Positive RRR and Pulses Normal GI/: Positive Soft, Nontender, Bowel Sounds Normal and No Distention Musculoskeletal: Positive Other (no edema) Neurological: Positive Sensation Intact, Motor intact, Reflexes Intact, Alert, Oriented and Muscle Strength 5/5 in Upper and Lower Extremities Bilaterally Vital Signs Vital Signs: Vital Signs: Last 24 Hours 07/23/25 14:00 07/23/25 15:05 07/23/25 18:27 Temperature 97.2 F L 97.7 F Temperature Source Temporal Artery Scan Temporal Artery Scan Pulse Rate 90 88 Respiratory Rate 16 24 H Blood Pressure 82/48 L 88/40 L Blood Pressure Mean 59 56 Blood Pressure Location Right Arm Right Arm Blood Pressure Position O2 Sat by Pulse Oximetry 98 97 99 Oxygen Delivery Method Room Air Room Air C-pap Oxygen Flow Rate Height Weight Telemetry Type Telemetry Monitoring Telemetry Heart Rate EKG ID Interval EKG QRS Interval Telemetry Strip Reading 07/23/25 19:00 07/23/25 19:18 07/23/25 20:00 Temperature Temperature Source Pulse Rate Respiratory Rate Blood Pressure Blood Pressure Mean Blood Pressure Location Blood Pressure Position O2 Sat by Pulse Oximetry Oxygen Delivery Method C-pap Room Air Oxygen Flow Rate 2 Height Weight Telemetry Type Remote Telemetry Telemetry Monitoring Continues Telemetry Heart Rate 88 EKG ID Interval 0.15 EKG QRS Interval 0.07 Telemetry Strip Reading SR 07/23/25 21:59 07/24/25 01:00 07/24/25 02:18 Temperature 96.9 F L 97.4 F L Temperature Source Temporal Artery Scan Temporal Artery Scan Pulse Rate 85 77 Respiratory Rate 24 H 20 Blood Pressure 96/61 100/70 Blood Pressure Mean 72 80 Blood Pressure Location Right Arm Right Arm Blood Pressure Position Sitting Supine O2 Sat by Pulse Oximetry 99 98 Oxygen Delivery Method Room Air C-pap Oxygen Flow Rate Height Weight Telemetry Type Remote Telemetry Telemetry Monitoring Continues Telemetry Heart Rate 78 EKG ID Interval 0.17 EKG QRS Interval 0.06 Telemetry Strip Reading SR 07/24/25 05:42 07/24/25 06:00 07/24/25 07:00 Temperature 97.0 F L Temperature Source Temporal Artery Scan Pulse Rate 86 Respiratory Rate 20 Blood Pressure 92/63 Blood Pressure Mean 72 Blood Pressure Location Right Arm Blood Pressure Position Sitting O2 Sat by Pulse Oximetry 99 Oxygen Delivery Method Room Air Room Air Oxygen Flow Rate Height Weight Telemetry Type Remote Telemetry Telemetry Monitoring Continues Telemetry Heart Rate 86 EKG ID Interval 0.15 EKG QRS Interval 0.09 Telemetry Strip Reading NSR 07/24/25 08:00 07/24/25 09:36 07/24/25 10:00 Temperature Temperature Source Pulse Rate Respiratory Rate 18 Blood Pressure Blood Pressure Mean Blood Pressure Location Blood Pressure Position O2 Sat by Pulse Oximetry 97 Oxygen Delivery Method Room Air Room Air Oxygen Flow Rate Height 5 ft 7 in Weight 70 kg Telemetry Type Telemetry Monitoring Telemetry Heart Rate EKG ID Interval EKG QRS Interval Telemetry Strip Reading 07/24/25 10:45 Temperature 97.4 F L Temperature Source Temporal Artery Scan Pulse Rate 86 Respiratory Rate 18 Blood Pressure 87/57 L Blood Pressure Mean 67 Blood Pressure Location Right Arm Blood Pressure Position Sitting O2 Sat by Pulse Oximetry 99 Oxygen Delivery Method Room Air Oxygen Flow Rate Height Weight Telemetry Type Telemetry Monitoring Telemetry Heart Rate EKG ID Interval EKG QRS Interval Telemetry Strip Reading Lab Results Lab Results: Lab Results: Last 24 Hours 07/24/25 05:22 WBC 8.96 RBC 5.33 Hgb 15.4 Hct 44.9 MCV 84.2 MCH 28.9 MCHC 34.3 RDW Coeff of Isael 13.4 Plt Count 311 Immature Gran % (Auto) 0.6 Neut % (Auto) 63.2 Lymph % (Auto) 25.0 [place] % (Auto) 8.8 Eos % (Auto) 2.0 Baso % (Auto) 0.4 Neut # (Auto) 5.7 Lymph # (Auto) 2.2 [place] # (Auto) 0.8 Eos # (Auto) 0.2 Baso # (Auto) 0.0 Immature Gran # (Auto) 0.1 Sodium 132.8 L Potassium 3.53 Chloride 94.5 L Carbon Dioxide 30.8 H Anion Gap 11.03 BUN 30.1 H Creatinine 2.24 H D Estimated GFR (MDRD) 29.00 BUN/Creatinine Ratio 13.43 Glucose 119.3 H Calcium 8.76 Total Bilirubin 1.09 AST 29.8 ALT 15.2 Alkaline Phosphatase 82.7 Total Protein 7.35 Albumin 3.90 Globulin 3.45 Albumin/Globulin Ratio 1.13 Additional Comments Additional Comments: I have independently reviewed and interpreted the labs/EKGs/imaging ordered during this hospital stay. I have reviewed outside records that are available in our EMR that pertain to medical stay including imaging/notes/labs from previous visits. Active Medications Active Medications: Medications Generic Name Dose Route Start Last Admin Trade Name Freq PRN Reason Stop Dose Admin Albuterol Sulfate 2 puff 07/23/25 10:58 Albuterol Sulfate 8 Gm Inhaler IH Q4H PRN Shortness of breath Apixaban 5 mg 07/22/25 21:00 07/24/25 08:56 Apixaban 5 Mg Tab PO 5 mg BID TREVA Administration Atorvastatin Calcium 40 mg 07/23/25 09:00 07/24/25 08:56 Atorvastatin Calcium 20 Mg Tablet PO 40 mg DAILY TREVA Administration Clopidogrel Bisulfate 75 mg 07/23/25 09:00 07/24/25 08:59 Clopidogrel Bisulfate 75 Mg Tablet PO 75 mg DAILY TREVA Administration Dextrose 50 ml 07/22/25 15:24 Dextrose 50 % In Water 50 Ml Disp.Syrin IVP ONCE PRN hypoglycemia Fluticasone Propionate 2 spray 07/22/25 16:23 Fluticasone Propionate 16 Gm Nasal [place] BEBE DAILY PRN Allergy Symptoms Sodium Chloride 1,000 mls @ 50 mls/hr 07/24/25 10:00 07/24/25 10:27 Sodium Chloride IV 07/25/25 05:59 50 mls/hr .Q20H TREVA Administration Insulin Human Regular 0 unit 07/22/25 15:25 Insulin Regular, Human 100 Unit/Ml (10ml) Vial SUBCUT PRN PRN Hyperglycemia Protocol Isosorbide Mononitrate 120 mg 07/23/25 09:00 07/23/25 08:35 Isosorbide Mononitrate 30 Mg Tab.Er.24h PO 120 mg On Hold: 07/24/25 08:14 DAILY TREVA Administration Ketorolac Tromethamine 15 mg 07/23/25 12:11 07/23/25 12:33 Ketorolac Tromethamine 15 Mg/Ml Vial IVP 07/27/25 12:11 15 mg Q6HR PRN Administration Pain Metoprolol Tartrate 50 mg 07/22/25 21:00 07/23/25 08:34 Metoprolol Tartrate 50 Mg Tablet PO 50 mg On Hold: 07/23/25 14:18 BID TREVA Administration Non-Formulary Medication 1 drop 07/22/25 21:00 07/23/25 21:39 Azelastine EACHEYE Not Given 2XD TREVA Non-Formulary Medication 250 mg 07/23/25 09:00 07/23/25 12:11 Terbinafine Hcl PO Not Given DAILY TREVA Ondansetron HCl 4 mg 07/22/25 15:23 07/23/25 06:23 Ondansetron Hcl/Pf 4 Mg/2 Ml Sdv IVP 4 mg Q6H PRN Administration Nausea / Vomiting Pantoprazole Sodium 40 mg 07/22/25 21:00 07/24/25 08:57 Pantoprazole Sodium 40 Mg Vial IVP 40 mg BID TREVA Administration Ranolazine 500 mg 07/22/25 21:00 07/24/25 08:58 Ranolazine 500 Mg Tab.Er.12h PO 500 mg On Hold: 07/24/25 11:10 2XD TREVA Administration Sacubitril/Valsartan 4 each 07/22/25 21:00 07/23/25 08:29 Sacubitril/Valsartan 1 Each Tablet PO 4 each On Hold: 07/23/25 19:27 BID TREVA Administration Sodium Chloride 1 syr 07/23/25 11:05 07/23/25 20:28 0.9% Sodium Chloride 10 Ml Disp.Syrin IVF 1 syr PRN PRN Administration IMAGE CLARITY Spironolactone 25 mg 07/23/25 09:00 07/23/25 08:34 Spironolactone 25 Mg Tablet PO 25 mg On Hold: 07/24/25 08:15 DAILY TREVA Administration Plan Plan: 1. Acute on Chronic Diastolic HF exacerbation - holding diuresis due to hypotension, Echo showed diastolic dysfunction, EF 45-50%, cannot rule out layered left ventricular apical septal thrombus; discussed case with cardiology Dr. Mccrary and recommended to continue diuresis when able, goal directed HF therapy meds, needs cardiac MRI and would be glad to see patient in the clinic if he would prefer to come to him, may need further evaluation of blockage 2. 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 Bruce in near future for CT chest w contrast 4. Afib - Chronic, continue home meds, tele 5. DMT2 - A1c 5.75. Holding home ozempic and lantus. Accuchecks ACHS with SSI 6. Hyperlipidemia - Chronic, continue home meds 7. MIKE - encouraged patient to have family bring in home CPAP, may use oxygen PRN if unable to get CPAP 8. COPD - follows with Dr. Bruce, rescue inhaler ordered 9. MARILU - due to aggressive diuresis and minimal oral intake with vomiting, holding diuresis at this time, will resume when able to tolerate, NS@50mL/hr x 1L, avoid nephrotoxins DVT Prophylaxis: Onesimo Review Statement Review Statement: I have personally discussed and reviewed the patient's visit/currently labs/imaging/decision making with Dr. Lopes, my supervising attending. Greater that 50 minutes spent with patient, 50% of the time spent with this patient was devoted to counseling and coordination of care.
[2025-07-24] MEDS: MIDODRINE PO SCH (14:47)
[2025-07-25 05:42] LABS: IMMATURE GRANULOCYTE # (AUTO) 0.0 (0.0-1.0); IMMATURE GRANULOCYTE % (AUTO) 0.5 % (0.0-5.0); RDW COEFFICIENT OF VARIATION 13.4 % (11.6-14.8)
[2025-07-25 05:56] LABS: CREATININE 1.62 mg/dL (0.60-1.10)
[2025-07-25] MEDS: LOPRESSOR PO SCH (09:10)
--- NOTE | 2025-07-25 10:29 | PCM.PROG ---
Date/Time Seen Date Seen by Provider: 07/25/25 Time Seen by Provider: 08:45 Provider Provider: EARL GARZON, [facility] Chief Complaint Chief Complaint: ACUTE HF EXACERBATION Subjective Subjective: Feeling much better today. No SOA. No further vomiting episodes. BP much improved. Objective Appearance: Positive No Apparent Distress and Alert and Oriented x3 Chest/Lungs: Positive Symmetrical With Equal Breath Sounds, Clear to Auscultation Bilaterally and Good Air Movement all 4 Lung Collins; Negative Rales, Rhonci or Wheezes Heart: Positive RRR and Pulses Normal GI/: Positive Soft, Nontender, Bowel Sounds Normal and No Distention Musculoskeletal: Positive Other (no edema BLE) Neurological: Positive Sensation Intact, Motor intact, Reflexes Intact, Alert and Oriented Vital Signs Vital Signs: Vital Signs: Last 24 Hours 07/24/25 10:45 07/24/25 13:00 07/24/25 13:59 Temperature 97.4 F L 97.4 F L Temperature Source Temporal Artery Scan Temporal Artery Scan Pulse Rate 86 87 Respiratory Rate 18 18 Blood Pressure 87/57 L 81/52 L Blood Pressure Mean 67 61 Blood Pressure Location Right Arm Left Arm Blood Pressure Position Sitting Sitting O2 Sat by Pulse Oximetry 99 97 Oxygen Delivery Method Room Air Room Air Oxygen Flow Rate Telemetry Type Remote Telemetry Telemetry Monitoring Continues Telemetry Heart Rate 86 EKG MA Interval 0.16 EKG QRS Interval 0.10 Telemetry Strip Reading NSR 07/24/25 14:00 07/24/25 18:00 07/24/25 19:00 Temperature 96.9 F L Temperature Source Temporal Artery Scan Pulse Rate 82 Respiratory Rate 20 Blood Pressure 85/53 L Blood Pressure Mean 63 Blood Pressure Location Left Arm Blood Pressure Position Supine O2 Sat by Pulse Oximetry 98 95 Oxygen Delivery Method Room Air C-pap Oxygen Flow Rate Telemetry Type Remote Telemetry Telemetry Monitoring Continues Telemetry Heart Rate 80 EKG MA Interval 0.16 EKG QRS Interval 0.07 Telemetry Strip Reading SR 07/24/25 20:00 07/24/25 20:00 07/24/25 21:27 Temperature 97.8 F Temperature Source Temporal Artery Scan Pulse Rate 79 Respiratory Rate 16 Blood Pressure 94/51 L Blood Pressure Mean 65 Blood Pressure Location Right Arm Blood Pressure Position Supine O2 Sat by Pulse Oximetry 99 96 Oxygen Delivery Method C-pap Room Air C-pap Oxygen Flow Rate 2 Telemetry Type Telemetry Monitoring Telemetry Heart Rate EKG MA Interval EKG QRS Interval Telemetry Strip Reading 07/25/25 01:00 07/25/25 01:10 07/25/25 05:32 Temperature 97.5 F L Temperature Source Temporal Artery Scan Pulse Rate 78 Respiratory Rate 18 Blood Pressure 106/74 Blood Pressure Mean 84 Blood Pressure Location Right Arm Blood Pressure Position Supine O2 Sat by Pulse Oximetry 100 Oxygen Delivery Method C-pap C-pap Oxygen Flow Rate 2 Telemetry Type Remote Telemetry Telemetry Monitoring Continues Telemetry Heart Rate EKG MA Interval 0.15 EKG QRS Interval 0.06 Telemetry Strip Reading SR 07/25/25 05:34 07/25/25 07:00 07/25/25 10:00 Temperature 96.0 F L 97.2 F L Temperature Source Temporal Artery Scan Temporal Artery Scan Pulse Rate 95 89 Respiratory Rate 16 16 Blood Pressure 113/65 116/71 Blood Pressure Mean 81 86 Blood Pressure Location Left Arm Left Arm Blood Pressure Position Supine Sitting O2 Sat by Pulse Oximetry 96 98 Oxygen Delivery Method Room Air Room Air Oxygen Flow Rate Telemetry Type Remote Telemetry Telemetry Monitoring Continues Telemetry Heart Rate 84 EKG MA Interval 0.18 EKG QRS Interval 0.06 Telemetry Strip Reading NSR Lab Results Lab Results: Lab Results: Last 24 Hours 07/25/25 05:23 WBC 8.77 RBC 5.08 Hgb 14.5 Hct 43.0 MCV 84.6 MCH 28.5 MCHC 33.7 RDW Coeff of Isael 13.4 Plt Count 301 Immature Gran % (Auto) 0.5 Neut % (Auto) 57.9 Lymph % (Auto) 28.1 Ogle % (Auto) 10.3 H Eos % (Auto) 2.6 Baso % (Auto) 0.6 Neut # (Auto) 5.1 Lymph # (Auto) 2.5 Ogle # (Auto) 0.9 Eos # (Auto) 0.2 Baso # (Auto) 0.1 Immature Gran # (Auto) 0.0 Sodium 137.3 Potassium 3.85 Chloride 102.4 Carbon Dioxide 31.0 H Anion Gap 7.75 BUN 23.2 H Creatinine 1.62 H D Estimated GFR (MDRD) 43.00 BUN/Creatinine Ratio 14.32 Glucose 97.6 Calcium 8.73 Total Bilirubin 0.90 AST 26.2 ALT 12.7 Alkaline Phosphatase 78.4 Total Protein 7.01 Albumin 3.70 Globulin 3.31 Albumin/Globulin Ratio 1.11 Additional Comments Additional Comments: I have independently reviewed and interpreted the labs/EKGs/imaging ordered during this hospital stay. I have reviewed outside records that are available in our EMR that pertain to medical stay including imaging/notes/labs from previous visits. Active Medications Active Medications: Medications Generic Name Dose Route Start Last Admin Trade Name Freq PRN Reason Stop Dose Admin Albuterol Sulfate 2 puff 07/23/25 10:58 Albuterol Sulfate 8 Gm Inhaler IH Q4H PRN Shortness of breath Apixaban 5 mg 07/22/25 21:00 07/25/25 09:09 Apixaban 5 Mg Tab PO 5 mg BID TREVA Administration Atorvastatin Calcium 40 mg 07/23/25 09:00 07/25/25 09:08 Atorvastatin Calcium 20 Mg Tablet PO 40 mg DAILY TREVA Administration Clopidogrel Bisulfate 75 mg 07/23/25 09:00 07/25/25 09:09 Clopidogrel Bisulfate 75 Mg Tablet PO 75 mg DAILY TREVA Administration Dextrose 50 ml 07/22/25 15:24 Dextrose 50 % In Water 50 Ml Disp.Syrin IVP ONCE PRN hypoglycemia Fluticasone Propionate 2 spray 07/22/25 16:23 Fluticasone Propionate 16 Gm Nasal [place] BEBE DAILY PRN Allergy Symptoms Insulin Human Regular 0 unit 07/22/25 15:25 Insulin Regular, Human 100 Unit/Ml (10ml) Vial SUBCUT PRN PRN Hyperglycemia Protocol Isosorbide Mononitrate 120 mg 07/23/25 09:00 07/23/25 08:35 Isosorbide Mononitrate 30 Mg Tab.Er.24h PO 120 mg On Hold: 07/24/25 08:14 DAILY TREVA Administration Ketorolac Tromethamine 15 mg 07/23/25 12:11 07/23/25 12:33 Ketorolac Tromethamine 15 Mg/Ml Vial IVP 07/27/25 12:11 15 mg Q6HR PRN Administration Pain Metoprolol Tartrate 50 mg 07/22/25 21:00 07/23/25 08:34 Metoprolol Tartrate 50 Mg Tablet PO 50 mg On Hold: 07/23/25 14:18 BID TREVA Administration Metoprolol Tartrate 12.5 mg 07/25/25 09:00 07/25/25 09:10 Metoprolol Tartrate 25 Mg Tablet PO 12.5 mg BID TREVA Administration Midodrine 5 mg 07/24/25 14:05 07/25/25 09:09 Midodrine Hcl 5 Mg Tablet PO 5 mg On Hold: 07/25/25 10:24 [id number] TREVA Administration Non-Formulary Medication 1 drop 07/22/25 21:00 07/25/25 10:15 Azelastine EACHEYE Not Given 2XD TREVA Non-Formulary Medication 250 mg 07/23/25 09:00 07/25/25 10:15 Terbinafine Hcl PO Not Given DAILY TREVA Ondansetron HCl 4 mg 07/22/25 15:23 07/23/25 06:23 Ondansetron Hcl/Pf 4 Mg/2 Ml Sdv IVP 4 mg Q6H PRN Administration Nausea / Vomiting Pantoprazole Sodium 40 mg 07/22/25 21:00 07/25/25 09:08 Pantoprazole Sodium 40 Mg Vial IVP 40 mg BID TREVA Administration Ranolazine 500 mg 07/22/25 21:00 07/24/25 08:58 Ranolazine 500 Mg Tab.Er.12h PO 500 mg On Hold: 07/24/25 11:10 2XD TREVA Administration Sacubitril/Valsartan 1 each 07/25/25 21:00 Sacubitril/Valsartan 1 Each Tablet PO BID TREVA Sodium Chloride 1 syr 07/23/25 11:05 07/23/25 20:28 0.9% Sodium Chloride 10 Ml Disp.Syrin IVF 1 syr PRN PRN Administration IMAGE CLARITY Sodium Chloride 1 syr 07/25/25 05:00 07/25/25 06:03 0.9% Sodium Chloride 10 Ml Disp.Syrin IVF 1 syr Q8HR TREVA Administration Spironolactone 25 mg 07/23/25 09:00 07/23/25 08:34 Spironolactone 25 Mg Tablet PO 25 mg On Hold: 07/24/25 08:15 DAILY TREVA Administration Plan Plan: 1. Acute on Chronic Diastolic HF exacerbation - Improved, good urine output, Echo showed diastolic dysfunction, EF 45-50%, cannot rule out layered left ventricular apical septal thrombus; discussed case with cardiology Dr. Mccrary and recommended to continue diuresis when able, goal directed HF therapy meds, needs cardiac MRI and would be glad to see patient in the clinic if he would prefer to come to him, may need further evaluation of blockage 2. 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 Bruce in near future for CT chest w contrast 4. Afib - Chronic, continue home meds, tele 5. DMT2 - A1c 5.75. Holding home ozempic and lantus. Accuchecks ACHS with SSI 6. Hyperlipidemia - Chronic, continue home meds 7. MIKE - encouraged patient to have family bring in home CPAP, may use oxygen PRN if unable to get CPAP 8. COPD - follows with Dr. Bruce, rescue inhaler ordered 9. MARILU - Resolved, back to baseline renal function; due to aggressive diuresis and minimal oral intake with vomiting, received 2L total of NS and BP improved Dispo: Will slowly restart home medications at lower doses, feel patient BP is running low at home and unaware. Likely d/c tomorrow Review Statement Review Statement: I have personally discussed and reviewed the patient's visit/currently labs/imaging/decision making with Dr. Lopes, my supervising attending. Greater that 50 minutes spent with patient, 50% of the time spent with this patient was devoted to counseling and coordination of care.
[2025-07-25] MEDS: ENTRESTO 24 MG-26 MG TABLET PO SCH (20:26)
[2025-07-26 05:28] LABS: IMMATURE GRANULOCYTE # (AUTO) 0.0 (0.0-1.0); IMMATURE GRANULOCYTE % (AUTO) 0.4 % (0.0-5.0); RDW COEFFICIENT OF VARIATION 13.4 % (11.6-14.8)
[2025-07-26 05:42] LABS: CREATININE 1.1 mg/dL (0.60-1.10)
--- NOTE | 2025-07-26 09:29 | DCSUM ---
Admission Date Admission Date: 07/22/25 Discharge Date Discharge Date: 07/26/25 Admission Diagnosis Admission Diagnosis: 1. CHF exacerbation 2. Nausea/vomiting 3. New hilar mass Discharge Diagnosis Discharge Diagnosis: 1. Acute on Chronic Diastolic HF exacerbation - Improved, good urine output, Echo showed diastolic dysfunction, EF 45-50%, cannot rule out layered left ventricular apical septal thrombus; discussed case with cardiology Dr. Dougherty goal directed HF therapy meds, needs cardiac MRI and would be glad to see patient in the clinic if he would prefer to come to him, may need further evaluation of blockage. Appt setup with Dr. Dougherty later this month. 2. Nausea/vomiting - Resolved, abd/pelv CT negative for any findings, likely related to ozempic use 3. New hilar mass - outpatient follow up, has appt with Dr. Bruce in near future for CT chest w contrast 4. Afib - Chronic, stable 5. DMT2 - A1c 5.75. Stopped Ozempic and lantus, did not require sliding scale coverage due to controlled blood glucose, started on Jardiance for HF 6. Hyperlipidemia - Chronic, stable 7. MIKE - stable 8. COPD - stable 9. MARILU - Resolved, back to baseline renal function; due to aggressive diuresis and minimal oral intake with vomiting, received 2L total of NS and BP improved Hospital Provider Hospital Provider: EARL GARZON, [facility] Care Physician Primary Care Physician: ANGELICA SANCHEZ MD Summary of History and Physical Summary of History and Physical: 65 year old male from home with pmhx of CABG, MIKE, hyperlipidemia, CHF, DMT2 insulin dependent, interstitial lung disease, and COPD who presented to the ER today with complaints of shortness of breath, non bloody vomiting, and numbness "all over" for about 5 days. Patient was concerned that he was in afib RVR. ER workup revealed a BNP of 5810. CXR negative other than a new mass that was visualized. Abdomen/pelv CTA completed that shows a new 5.5cm right hilar mass that is constistent with primary pulmonary malignancy. Patient admitted to [facility] inpatient for CHF exacerbation. At this time, patient denies feeling short of breath. On room air and conversing without difficulty. No nausea or abd pain at this time. Patient reports that he has been vomiting on and off for the last 6 months and reports he vomits "60% of the days". Reports he had an upper endoscopy around Spring that was normal. Reports he has had chills over the last several days, but no fever. Hospital Course Subjective: During stay, patient was treated for acute on chronic diastolic HF exacerbation. Initially was diuresed with lasix 40 mg Q8H. Patient also was experiencing nausea/vomiting and was not eating or drinking well due to this. Developed hypotension and mild MARILU. Received gentle IV fluids and renal function returned to baseline. BP improved. Patient reported often has episodes of diz ziness and fatigue at home. Does not check his BP. Concerned he is having lows at home and is unaware. Adjusted metoprolol dose to 12.5 bid, decreased entresto dose, stopped imdur, restarted spironolactone 25 mg daily, and resumed ranexa. Tolerated changes well. Symptoms of SOB improved following diuresis and did not require further. No edema present and lung sounds clear. Echo completed and showed diastolic dysfunction, EF 45-50%, cannot rule out layered left ventricular apical septal thrombus. Discussed case with cardiology, Dr. Dougherty and recommended to continue diuresis when able, goal directed HF therapy meds, needs cardiac MRI and would be glad to see patient in the clinic if he would prefer to come to him, may need further evaluation of blockage. He is scheduled with him later this month for follow-up. Nausea and vomiting resolved. Patient stated that this had been present since starting the ozempic and could not tolerate metformin prior to this. Has lost over 100 lbs and A1C is 5.75. Stopped lantus and ozempic due to greatly controlled blood gluocose. Started jardiance for goal directed HF therapy and diabetes. Incidental finding of new hilar mass on imaging on admission. Has appt with Dr. Bruce in near future including a CT chest with contrast. Discussed importance of keeping this appointment. Follow-up with pcp and specialists as scheduled. Appearance: Pleasant, No Apparent Distress and Alert HEENT: MMM, Supple and No JVD CVS: No Murmur, No Rubs and No Gallop Abdomen: Soft, Non-Tender and No Distention Respiratory: No Dyspnea Extremities: No Edema Vital Signs: Most Recent Vital Signs Temperature 97 F L 07/26/25 05:13 Temperature Source Temporal Artery Scan 07/26/25 05:13 Temperature Source Temporal Artery Scan 07/22/25 10:04 Pulse Rate 83 07/26/25 05:13 Respiratory Rate 16 07/26/25 05:13 Blood Pressure 140/79 07/26/25 05:13 Blood Pressure Mean 99 07/26/25 05:13 Blood Pressure Left Arm 128/95 07/22/25 15:36 Blood Pressure Location Right Arm 07/26/25 05:13 Blood Pressure Position Supine 07/26/25 05:13 O2 Sat by Pulse Oximetry 98 07/26/25 05:13 Oxygen Delivery Method C-pap 07/26/25 05:24 Oxygen Flow Rate 2 07/26/25 05:24 Height 5 ft 7 in 07/24/25 09:36 Weight 70 kg 07/24/25 09:36 Telemetry Type Remote Telemetry 07/26/25 07:00 Telemetry Monitoring Continues 07/26/25 07:00 Irregular Telemetry Rate (Approximate) 70-80 BPM 07/26/25 07:00 Telemetry Heart Rate 74 07/26/25 07:00 EKG AK Interval 0.17 07/26/25 07:00 EKG QRS Interval 0.07 07/26/25 07:00 Telemetry Strip Reading NSR 07/26/25 07:00 Imaging: EXAMINATION: AP CHEST RADIOGRAPH. HISTORY: chest pain COMPARISON: 03/17/2025 chest x-ray FINDINGS: There is new elevation of the right hemidiaphragm. Multifocal right lung patchy opacities are seen. There is a subtle more focal right infrahilar opacity. No pleural effusion or pneumothorax. The cardiomediastinal silhouette is within normal limits. Operative changes mediasternotomy are again seen. IMPRESSION: Subtle right infrahilar focal opacity. This is nonspecific and a neoplastic etiology cannot be excluded in this exam. Recommend CT with IV contrast for further evaluation. New right hemidiaphragm elevation. Multifocal right lung atelectasis, consolidation and/or scarring EXAM: CTA ABDOMEN AND PELVIS WITH AND WITHOUT CONTRAST HISTORY: Right upper and lower quadrant tenderness to palpation TECHNIQUE: CT acquisition of the abdomen and pelvis from the lower thorax through the pelvis without intravenous contrast administration. CTA acquisition of the abdomen and pelvis with intravenous contrast administration. IV Contrast: 100 mm Omnipaque 350 administered. Gastrointestinal contrast: None. 3D/MIP/VR images were performed. CT Dose Reduction Techniques Performed: Yes. COMPARISON: 03/22/2023 and 01/03/2025 FINDINGS: For reference, stenoses are graded as: mild (<50%), moderate (51-69%), severe (70-94%), critical (95-99%) VASCULAR: Aorta: Similar infrarenal abdominal aortic aneurysm measuring up to 3.3 cm.. No significant stenosis. No atherosclerotic plaque/calcification. Common Iliac arteries: Mild bilateral stenosis. No aneurysm. Internal Iliac arteries: [id number] scattered bilateral stenosis. External Iliac arteries: No significant stenosis. Celiac artery: Mild origin stenosis. Superior mesenteric artery: Moderate origin stenosis. Inferior mesenteric artery: No significant stenosis. Left renal artery: Mild origin stenosis. Right renal artery: [id number] origin stenosis. Limited venous system: Not well opacified due to phase of contrast. ABDOMEN/PELVIS: Lower Thorax: Right hilar mass measuring 5.5 x 4.8 cm transaxially. Mass effect on the regional vasculature and bronchi partially demonstrated. Liver: No mass. Normal morphology. Biliary: Cholecystectomy. No biliary dilation. Pancreas: No duct dilation. No mass. Spleen: Calcified granuloma Adrenals: No mass. Kidneys and ureters: Small simple bilateral renal cysts. No acute or suspicious renal findings. No hydronephrosis or calculus. GI Tract: Postoperative changes of the sigmoid colon. No bowel obstruction or inflammation. No contrast extravasation into the bowel. Normal appendix. Peritoneal Cavity: No ascites. Lymph Nodes: No lymphadenopathy. Pelvis: No free fluid. Bladder is normal. Bones/Soft Tissues: No acute or suspicious osseous findings. Anterior and posterior L5-S1 fusion hardware. Scattered chronic degenerative changes. IMPRESSION: No acute CTA findings in the abdomen or pelvis. Right hilar mass measuring up to 5.5 cm with associated mass effect on the regional vasculature and bronchi, partially demonstrated. This is most consistent with primary pulmonary malignancy. Recommend CT chest with contrast for further evaluation. Additional findings as above. Lab Results Last 24 Hours: 07/26/25 05:13 WBC 8.99 RBC 4.93 Hgb 14.1 Hct 41.7 L MCV 84.6 MCH 28.6 MCHC 33.8 RDW Coeff of Isael 13.4 Plt Count 313 Immature Gran % (Auto) 0.4 Neut % (Auto) 57.5 Lymph % (Auto) 27.5 [place] % (Auto) 10.2 H Eos % (Auto) 3.8 Baso % (Auto) 0.6 Neut # (Auto) 5.2 Lymph # (Auto) 2.5 [place] # (Auto) 0.9 Eos # (Auto) 0.3 Baso # (Auto) 0.1 Immature Gran # (Auto) 0.0 Sodium 133.3 L Potassium 3.71 Chloride 103.8 Carbon Dioxide 26.4 Anion Gap 6.81 BUN 16.3 Creatinine 1.10 D Estimated GFR (MDRD) 67.00 BUN/Creatinine Ratio 14.81 Glucose 113.6 H Calcium 8.92 Total Bilirubin 1.30 AST 31.7 ALT 11.9 Alkaline Phosphatase 72.0 Total Protein 7.16 Albumin 3.90 Globulin 3.26 Albumin/Globulin Ratio 1.19 Discharge Instructions Discharge Planning: Discharge Planning > 40 minutes If patient is discharged with left ventricular systolic dysfunction: no, diastolic Discharged with a beta viviana? [] If no, why not? [] Discharged with an rayshawn/arb? [] If no, why not? [] Discharge Medications: Medications at Discharge (Home Meds & RX) atorvastatin 40 mg tablet 40 mg PO DAILY 03/22/23 spironolactone 25 mg tablet 25 mg PO DAILY 03/22/23 fluticasone propionate 50 mcg/actuation nasal spray,suspension (Allergy Relief (fluticasone)) 2 spray intranasal DAILY PRN nasal congestion 12/28/24 terbinafine HCl 250 mg tablet 250 mg PO DAILY 01/03/25 apixaban 5 mg tablet (Eliquis) 5 mg PO BID #60 tabs 01/04/25 clopidogrel 75 mg tablet (Plavix) 75 mg PO DAILY #30 tabs 01/04/25 pantoprazole 40 mg tablet,delayed release (Protonix) 40 mg PO DAILY #30 tabs 01/04/25 ondansetron 4 mg disintegrating tablet 4 mg PO Q8H PRN nausea and vomiting #30 tabs 03/17/25 azelastine 0.05 % eye drops 1 drp ophthalmic (eye) 2XD 07/22/25 ranolazine 500 mg tablet,extended release,12 hr 500 mg PO 2XD 07/22/25 empagliflozin 10 mg tablet (Jardiance) 10 mg PO DAILY #30 tabs 07/26/25 metoprolol tartrate 25 mg tablet 12.5 mg (1/2 x 25 mg) PO BID #30 tabs 07/26/25 sacubitril 24 mg-valsartan 26 mg tablet (Entresto) 1 tab PO BID #60 tabs 07/26/25 Discharge Plan Discharge Discharge Orders: Discharge Patient (ONCE); Ordered 07/26/25 Ordered By: MAR SEYMOUR Activity Restrictions/Additional Instructions: Diagnosis: Congestive Heart Failure Exacerbation Diet: Low salt, Diabetic Activity as tolerated. Medications: [facility] * Metoprolol tartrate 12.5 mg twice a day * Jardiance 10 mg daily * Entresto 24-26 mg twice a day Follow-up with your primary care provider and specialists. Instructions: Heart Failure (GEN) Care Plan Goals: Problem: Activity Intolerance Goal: Demonstrate increased activity intolerance Instructions: Determine cause of activity intolerance Change positions slowly Gradually increase activity Report intolerances to provider Problem: Cardiac Dysrhythmia Goal: Adequate cardiac output Instructions: Apply oxygen as ordered Medication as ordered Monitor for any changes in rhythm Notify MD of any changes Patient Disposition: HOME SELF-CARE Prescriptions: New metoprolol tartrate 25 mg Tablet 12.5 mg PO BID Qty: 30 0RF sacubitril-valsartan [Entresto] 24-26 mg Tablet 1 tab PO BID Qty: 60 0RF Jardiance 10 mg tablet 10 mg PO DAILY Qty: 30 0RF Continued fluticasone propionate [Allergy Relief (fluticasone)] 50 mcg/actuation spray,suspension 2 spray intranasal DAILY PRN (Reason: nasal congestion) Rx Instructions: administer into each nostril terbinafine HCl 250 mg tablet 250 mg PO DAILY Eliquis 5 mg tablet 5 mg PO BID Qty: 60 0RF clopidogrel [Plavix] 75 mg tablet 75 mg PO DAILY Qty: 30 0RF pantoprazole [Protonix] 40 mg tablet,delayed release (DR/EC) 40 mg PO DAILY Qty: 30 0RF atorvastatin 40 mg tablet 40 mg PO DAILY Patient Comments: TAKE 1 TABLET BY MOUTH DAILY spironolactone 25 mg tablet 25 mg PO DAILY Patient Comments: TAKE 1 TABLET BY MOUTH DAILY ondansetron 4 mg tablet,disintegrating 4 mg PO Q8H PRN (Reason: nausea and vomiting) Qty: 30 1RF azelastine 0.05 % drops 1 drp ophthalmic (eye) 2XD ranolazine 500 mg tablet extended release 12 hr 500 mg PO 2XD Discontinued insulin glargine [Lantus U-100 Insulin] 100 unit/mL solution 6 unit subcut DAILY isosorbide mononitrate 120 mg tablet extended release 24 hr 120 mg PO DAILY sacubitril-valsartan [Entresto] 97-103 mg tablet 1 tab PO BID Patient Comments: TAKE 1 TABLET BY MOUTH TWICE DAILY metoprolol tartrate 50 mg tablet 50 mg PO BID Patient Comments: TAKE 1 TABLET BY MOUTH TWICE DAILY Ozempic 1 mg/dose (4 mg/3 mL) pen injector 1 mg subcut WEEKLY Did you review OR TOPPIECE CUTTER for ALL controlled substances?: No Discussed opioids are addictive and Narcan is available by prescription or from pharmacy.: No Condition: Fair Referrals: JAIMEE BYERS [REFERRING, INTERNAL MEDICINE] - 08/03/25 11:00 am ANGELICA SANCHEZ MD [Primary Care Provider, UNKNOWN] - 07/30/25 10:00 am BRIAN DOUGHERTY MD [STAFF PHYSICIAN, Cardiology] - 08/14/25 9:00 am Referral Note: [facility], [address] [place] [id number] [facility] [phone]
[2025-07-26 10:01] VITALS: BP 112/80; PULSE 82; RESP 18; TEMP 97.5
== END 2025-07-26 10:35 | disposition home or self-care (01) | DRG 292 ==
LOC: ED 09:52 → MEDSURG B 14:50
PROVIDERS: ADMIT Hospitalist; ATTEND Nurse Practitioner Family
DX: R11.2 Nausea with vomiting, unspecified; I48.20 Chronic atrial fibrillation, unspecified; I50.33 Acute on chronic diastolic (congestive) heart failure; E11.9 Type 2 diabetes mellitus without complications; J44.9 Chronic obstructive pulmonary disease, unspecified; R91.8 Other nonspecific abnormal finding of lung field; N17.9 Acute kidney failure, unspecified; G47.33 Obstructive sleep apnea (adult) (pediatric)